=== PATIENT | male | born 1960 | race Caucasian/White ===

== ENCOUNTER 2018-08-31 10:26 | Inpatient (IN) ==
[~2018-08-31 10:26] MED LIST: LIDOCAINE W/ SODIUM BICARB 0.5 ML SYR ONE; LIDOCAINE W/ SODIUM BICARB 0.5 ML SYR SUBD ONE; Lactated Ringers 1,000 ML PRIMARY IV ONE; Nasal Sanitizer POPSWAB ampule 3 AMP (Nozin) PREOP DOSE ENOS SCH; Vancomycin Inj 1gm vial ONE; ceFAZolin Inj 2gm (Premix) 2 GM/50 ML BAG IV ONE
[2018-08-31] MEDS ORDERED: HYDROmorphone 2 MG/1 ML IVP ONE (11:35)
[2018-08-31] MEDS ORDERED: REMIFENTANIL 1 MG/1 ML IV ONE ×2 (11:59→16:28)
[2018-08-31] MEDS ORDERED: REMIFENTANIL HCL 2 MG VIAL IV ONE ×2 (11:59→16:28)
[2018-08-31] MEDS ORDERED: Gentamicin Inj 40 MG/ML VIAL ONE (13:20)
[2018-08-31] MEDS ORDERED: Sodium Chloride 0.9% vial 30 ML ONE (13:20)
[2018-08-31] MEDS ORDERED: BUPIVACAINE 0.25% W/ EPI - 10 ML VIAL ONE (13:20)
[2018-08-31] MEDS ORDERED: Vancomycin Inj 1gm vial ONE (13:20)
[2018-08-31] MEDS ORDERED: BACITRACIN 50,000 UNIT VIAL IRRIG ONE (13:21)
[2018-08-31] MEDS ORDERED: BUPivacaine Liposome/PF (Exparel) Inj 20ml vial INFIL ONE (13:21)
[2018-08-31] MEDS ORDERED: LIDOCAINE HCL 2 % 10 ML JELLY URO-JECT TOPICAL ONE ×2 (13:50→13:59)
[2018-08-31] MEDS ORDERED: KETAMINE HCL 100 MG/2 ML SYRINGE IV ONE (14:17)
[2018-08-31] MEDS ORDERED: BUPivacaine Inj 0.25% PF - 10ml vial ONE (14:38)
[2018-08-31] MEDS ORDERED: Acetaminophen 1000mg Inj 1,000 MG/100 ML VIAL IV ONE (16:19)
[2018-08-31] MEDS ORDERED: MIDAZOLAM 5 MG/1 ML IVP ONE (16:28)
[2018-08-31] MEDS ORDERED: fentaNYL Inj 250 MCG/5 ML VIAL IVP ONE (16:28)
[2018-08-31] MEDS ORDERED: KETOROLAC 30 MG/1 ML VIAL ONE (16:35)
[2018-08-31] MEDS ORDERED: HYDROmorphone 2 MG/1 ML ONE ×4 (16:47→18:09)
[2018-08-31] MEDS ORDERED: LIDOCAINE W/ SODIUM BICARB 0.5 ML SYR SUBD PRN (17:49)
[2018-08-31] MEDS: HYDROmorphone 2 MG/1 ML IVP PRN ×3 (17:52→18:11)
--- NOTE | 2018-08-31 17:55 | CRNA.PROGR ---
Anesthesia Time - Procedure/Recovery Time Start Date: 08/31/18 End Date: 08/31/18 Anesthesia : Time In: 13:48 Anesthesia : Time Out: 17:47 Anesthesia : Total Time: 239 - Total Anesthesia Time Total Anesthesia Time (minutes): 239 - Other Weight: 95.708 kg Height: 5 ft 11 in Body Mass Index (BMI): 29.4 Physical Status: P2 Anesthesia Type: General Anesthesia : ET
--- NOTE | 2018-08-31 17:56 | CRNA.PROGR ---
Anesthesia Recovery Phase I - Post Anesthesia Evaluation Patient's Condition on Arrival in Phase I: Stable Pain Level: 7
[2018-08-31] MEDS ORDERED: Lactated Ringers 1,000 ML PRIMARY IV SCH (18:00)
[2018-08-31] MEDS ORDERED: DIAZEPAM 10 MG/2 ML (5 MG/1 ML) CARPUJECT IVP ONE (18:18)
[2018-08-31] MEDS ORDERED: MAGNESIUM 400 MG/5 ML - 30 ML (MILK OF MAGNESIA) PO PRN (18:57)
[2018-08-31] MEDS ORDERED: Fleet Enema 133ml RECTAL PRN (18:57)
[2018-08-31] MEDS ORDERED: Vancomycin-PHA to Dose IV SCH (18:57)
[2018-08-31] MEDS ORDERED: Metoclopramide Inj 10 MG/2 ML VIAL IVP PRN (18:57)
[2018-08-31] MEDS ORDERED: Ondansetron ODT Tab 4 MG TAB PO PRN (18:57)
[2018-08-31] MEDS ORDERED: MAGNESIUM CITRATE 296 ML SOLUTION PO PRN (18:57)
[2018-08-31] MEDS ORDERED: Prochlorperazine Edisylate Inj 10mg/2ml vial IVP PRN (18:57)
[2018-08-31] MEDS ORDERED: BISACODYL 5 MG TABLET PO PRN (18:57)
[2018-08-31] MEDS ORDERED: ONDANSETRON 4 MG/2 ML VIAL IVP PRN (18:57)
[2018-08-31] MEDS ORDERED: DOCUSATE 100 MG CAPSULE PO PRN (18:57)
[2018-08-31] MEDS ORDERED: PROMETHAZINE 25 MG/1 ML VIAL IM PRN (18:57)
[2018-08-31] MEDS: oxyCODONE/APAP 10/325 Tab 1 EACH TAB PO PRN (22:18)
[2018-08-31] MEDS: ceFAZolin Inj 1 GM in Sodium Chloride 0.9% 100 ML IV SCH (22:19)
[2018-08-31] MEDS: oxyCODONE ER Tab 20 MG TAB PO SCH (22:19)
[2018-08-31] MEDS: MORPHINE SULFATE 4 MG/1 ML IVP PRN (23:00)
[2018-08-31] MEDS: DIAZEPAM 10 MG TABLET PO PRN (23:47)
[2018-09-01] MEDS: MORPHINE SULFATE 4 MG/1 ML IVP PRN ×5 (02:53→20:49)
[2018-09-01] MEDS: oxyCODONE/APAP 10/325 Tab 1 EACH TAB PO PRN ×6 (03:33→23:37)
[2018-09-01 04:55] LABS: BASOPHILS # (AUTO) 0.02 10*3/UL; BASOPHILS % (AUTO) 0.4 % (0-1); EOSINOPHILS # (AUTO) 0.39 10*3/UL; EOSINOPHILS % (AUTO) 7.6 % (0-8); Hematocrit [HCT] 33.3 % (42.0-52.0); LYMPHOCYTES # (AUTO) 1.24 10*3/uL; MEAN CORPUSCULAR HEMOGLOBIN 30.6 PG (27-31); MEAN CORPUSCULAR VOLUME 92.5 FL (80-90); MEAN PLATELET VOLUME 8.9 FL (7.4-12.2); MONOCYTES # (AUTO) 0.38 10*3/UL (0.3-0.8); MONOCYTES % (AUTO) 7.4 % (5-15); NEUTROPHILS # (AUTO) 3.07 10*3/UL; NEUTROPHILS % (AUTO) 60.1 % (50-80)
[2018-09-01 05:16] LABS: PLATELET MORPHOLOGY COMMENT NORMAL MORPHOLOGY (NORM); RBC MORPHOLOGY COMMENT NORMAL MORPHOLOGY (NORM); WBC MORPHOLOGY COMMENT NORMAL MORPHOLOGY (NORM)
[2018-09-01 05:18] LABS: BLOOD UREA NITROGEN 11 mg/dL (7-22); BUN/CREATININE RATIO 12.22 (6-20)
[2018-09-01] MEDS: ceFAZolin Inj 1 GM in Sodium Chloride 0.9% 100 ML IV SCH (05:44)
[2018-09-01] MEDS: DIAZEPAM 10 MG TABLET PO PRN ×3 (05:44→22:28)
[2018-09-01] MEDS: oxyCODONE ER Tab 20 MG TAB PO SCH ×2 (07:07→19:27)
[2018-09-01] MEDS: LISINOPRIL 5 MG TABLET PO SCH (08:37)
[2018-09-01] MEDS: CARVEDILOL 3.125 MG TABLET PO SCH (08:37)
[2018-09-01] MEDS: VARENICLINE TARTRATE 1 MG PO SCH ×2 (09:25→20:51)
--- NOTE | 2018-09-01 12:12 | CRNA.PROGR ---
Anesthesia Note - Progress Notes Anesthesia Progress Note: Post OP Anesthesia Note Pt is lying in bed, visiting with the the Hospitalist, he has been up and moving, walking around the nursing floor. He states that he has been able to tolerate a regular diet, and denies any N/V. Is pain is moderate and being managed by the hospitalist. current VS are stable. Denies any residual problems of GETA. Vital Signs - Last Taken Temperature 98 F 09/01/18 11:12 Pulse Rate 82 09/01/18 11:12 Respiratory Rate 20 09/01/18 11:12 Blood Pressure 122/74 09/01/18 11:12 Pulse Ox 94 09/01/18 11:12
--- NOTE | 2018-09-01 12:35 | NEURO.PROG ---
Subjective Post Op Day: 0 Pain Management: PO Chandler Catheter: Yes Flatus: Yes Diet: Regular Ambulating: No Additional Details: Late Entry Patient seen last night, 08/31/2018 at approximately 6:00 pm in the PACU (could not access [employer] in hotel later when trying to document visit). Waking up from anesthesia. Complaint of back pain. Moving all extremities well. PLAN: 1.) Transfer to surgical floor when ready. 2.) Continue post-operative antibiotics. 3.) Continue post-operative pain control. 4.) Mobilize. Objective : Data - Labs CBC and BMP: 09/01/18 04:32 09/01/18 04:32 - Vital Signs Vital Signs and I&O: Vital Signs - Last Taken Temperature 98 F 09/01/18 11:12 Pulse Rate 82 09/01/18 11:12 Respiratory Rate 20 09/01/18 11:12 Blood Pressure 122/74 09/01/18 11:12 Pulse Ox 94 09/01/18 11:12 Intake and Output (24hr x 4 totals) 08/30/18 08/31/18 09/01/18 09/02/18 05:59 05:59 05:59 05:59 Intake Total 4700 / 4700 940 / 940 Output Total 1700 / 1700 800 / 800 Balance 3000 / 3000 140 / 140
--- NOTE | 2018-09-01 12:38 | NEURO.PROG ---
Subjective Post Op Day: 1 Pain Management: PO Chandler Catheter: No Flatus: Yes Diet: Regular Ambulating: Yes Additional Details: Awake and alert. Complaint of post-operative pain. Chandler out. Eating/ambulating. Moving all extremities well. 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 PLAN: 1.) Continue post-operative pain control, patient not ready for discharge as still requiring IV pain meds for breakthrough pain. 2.) Continue to mobilize. Objective : Data - Labs CBC and BMP: 09/01/18 04:32 09/01/18 04:32 - Vital Signs Vital Signs and I&O: Vital Signs - Last Taken Temperature 98 F 09/01/18 11:12 Pulse Rate 82 09/01/18 11:12 Respiratory Rate 20 09/01/18 11:12 Blood Pressure 122/74 09/01/18 11:12 Pulse Ox 94 09/01/18 11:12 Intake and Output (24hr x 4 totals) 08/30/18 08/31/18 09/01/18 09/02/18 05:59 05:59 05:59 05:59 Intake Total 4700 / 4700 940 / 940 Output Total 1700 / 1700 800 / 800 Balance 3000 / 3000 140 / 140
[2018-09-01] MEDS: NICOTINE 21 MG /DAY PATCH TRANSDERM SCH (13:57)
--- NOTE | 2018-09-01 14:42 | PDOC ---
HPI - History of Present Illness Date of Service: 09/01/18 Time of Service: 10:30 Chief Complaint: Back pain History of Present Illness: This very pleasant 58-year-old male with prior history of back surgeries and chronic low back pain. He felt that the hardware is giving him pain any spoke with Dr. Alvarez regarding hardware removal. He did very well with a couple of hardware blocks. We were consulted to help address medical issues in the setting of his lower back surgery during his hospital stay. He currently denies any chest pain, shortness breath, nausea or vomiting. His major complaint is acute postoperative pain. He states that his pain prior to surgery is much better but this seems like incisional pain. He is quite anxious about his pain symptoms, but he also is a smoker and has not had any nicotine patch. There were no other complaints. Please see Dr. Alvarez's surgical note regarding procedures performed. Past Medical History Medical History: 1. Chronic back pain. 2. Hypertension. 3. Hepatitis C, chronic. 4. Depression Surgical History: 1. Multiple back surgeries in the past. 2. Multiple left hand surgeries due to an accident at age 19. 3. Right wrist and elbow surgery Pertinent Family History: Denied any problems in his family history Past Social History: Pack per day smoker. Denies drinking alcohol. States he no longer uses drugs. . Has healthy children. Lives in [place], [place]. Tobacco Use: Current Every Day Smoker In the Past 12 Months, Have Used or Abuse Any of the Following Substance: None Alcohol Use: None Medication / Allergies Home Medications: Home Medications Medication Instructions Recorded Confirmed Type oxycodone 5 mg capsule 15 mg PO Q4-6H PRN 03/10/18 08/30/18 History oxycodone ER 20 mg tablet,crush 20 mg PO Q12H 03/10/18 08/30/18 History resistant,extended release 12 hr varenicline 1 mg tablet 1 mg PO BID 06/09/18 08/30/18 History Carvedilol 3.125 mg PO DAILY 08/30/18 08/30/18 History Cyclobenzaprine HCl [Flexeril] 10 mg PO PRN PRN 08/30/18 08/30/18 History Lisinopril 2.5 mg PO DAILY 08/30/18 08/30/18 History Allergies/Adverse Reactions: Allergies Allergy/AdvReac Type Severity Reaction Status Date / Time No Known Allergies Allergy Verified 09/01/18 06:36 Review of Systems - Review of Systems All Systems: Reviewed & No Additional Complaints Except as Stated (I did a 12 point review systems and it was negative other than that discussed below and in the history of present illness.) Exam - Vitals Vital Signs: Vital Signs Temperature 98 F Temperature Source Temporal Artery Scan Pulse Rate [Pulse Oximeter] 82 Pulse Rate 73 Respiratory Rate 20 Blood Pressure [Left Arm] 122/74 Blood Pressure 116/72 Pulse Ox 94 Oxygen Flow Rate 2 Oxygen Delivery Method Room Air Height 5 ft 11 in Weight 222 lb 4.8 oz - General General Appearance: No Acute Distress, Cooperative - Head Head Exam: Normal Inspection, Normocephalic, Atraumatic - Eye Eye Exam: POSITIVE: No Scleral Icterus - ENT ENT Exam: POSITIVE: Mucous Membranes Moist Additonal ENT Exam Details: Does not have any teeth - Neck Neck Exam: Normal Inspection, No Tenderness, No Lymphadenopathy, No Thyromegaly, JVP is not Raised - Respiratory Respiratory Exam: POSITIVE: Clear to Auscultation - Bilaterally, Breathing Non Labored - Cardiovascular Cardiovascular Exam: POSITIVE: RRR, No Murmur, No Clicks, No Gallops, No Rubs, No JVD - GI/Abdominal GI/Abdominal Exam: POSITIVE: Normal Bowel Sounds, Non Tender, Non Distended, Soft - Rectal Rectal Exam: POSITIVE: Deferred - External Exam: POSITIVE: Deferred Exam: POSITIVE: Deferred, Chandler Catheter in Place (Urine looks clear) - Extremities Extremities Exam: POSITIVE: No Clubbing Present, No Edema Present, No Cyanosis Present - Back Additional Back Exam Details: There is a drain in place. - Neurological Neurological Exam: POSITIVE: Alert, Oriented x 3, No Facial Droop, Speech Intact / Clear, Moves All Extremities Equally - Psychiatric Psychiatric Exam: POSITIVE: Anxious Results - Labs CBC and BMP: 09/01/18 04:32 09/01/18 04:32 Assessment and Plan - Patient Problems (1) Hypertension Current Visit: Yes Status: Acute Code(s): I10 - Essential (primary) hypertension Qualifiers: Hypertension type: essential hypertension Qualified Code(s): I10 - Essential (primary) hypertension (2) Chronic neck and back pain Current Visit: No Status: Chronic Code(s): M54.2 - Cervicalgia; M54.9 - Dorsalgia, unspecified; G89.29 - Other chronic pain (3) Hepatitis C Current Visit: Yes Status: Acute Code(s): B19.20 - Unspecified viral hepatitis C without hepatic coma Qualifiers: Viral hepatitis chronicity: unspecified Hepatic coma status: without hepatic coma Qualified Code(s): B19.20 - Unspecified viral hepatitis C without hepatic coma (4) Tobacco abuse Current Visit: Yes Status: Acute Code(s): Z72.0 - Tobacco use (5) Depression Current Visit: Yes Status: Chronic Code(s): F32.9 - Major depressive disorder, single episode, unspecified Qualifiers: Depression Type: other depression Qualified Code(s): F32.89 - Other specified depressive episodes - Assessment / Plan Additional Assessment/Plan Details: Patient was admitted post surgery. Continue antihypertensive therapy. Add nicotine patch. PT and OT. Pain control and DVT prophylaxis as per neurosurgery.
--- NOTE | 2018-09-01 16:26 | PT.PROG ---
Progress Note Progress Note: S. patient stated he is feeling alright this afternoon. O. patient ambulated 150 feet around the nurses station, then ascended and descended 4 stairs. Patient returned to his room where he was left with alarm and call light. A. Patient tolerated ambulation and stair training well, he did report slight back pain after walking. P. Patient has met all goals at this time. Continue POC until Discharge.
--- NOTE | 2018-09-01 16:34 | GEN.OPNOTE ---
Operative Note Surgery Date: 08/31/18 Preoperative Diagnosis: 1.) Chronic low back pain. 2.) Reproducable, successful L3-S1 hardware blocks. 3.) Status post L4-S1 hardware removal and L3-4 interbody and L3-S1 posterolateral instrumented fusion. 4.) Status post L4-S1 interbody and posterolateral instrumented fusion. 5.) S/P remote work related injury. Postoperative Diagnosis: 1.) Chronic low back pain. 2.) Reproducable, successful L3-S1 hardware blocks. 3.) Status post L4-S1 hardware removal and L3-4 interbody and L3-S1 posterolateral instrumented fusion. 4.) Status post L4-S1 interbody and posterolateral instrumented fusion. 5.) S/P remote work related injury. Procedure: L3-S1 posterolateral instrumentation removal. (CPT code: 11817) Surgeon: Palomo Alvarez MD Immunopathologist: CHUCK Villalta Anesthesia Provider: Evans Darby CRNA Anesthesia Type: General Estimated Blood Loss (mL): 100 Fluids: See anesthesia record Pathology: None Indications: Mr. Wen is a 58 year old gentleman status post a remote work related injury. He had a previous L4-S1 interbody and posterolateral instrumented fusion. 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 He underwent a hardware removal at L4-S1 hardware removal and interbody L3-4 TLIF/L3-S1 posterolateral instrumented fusion that I performed on 10/31/15. He underwent a right SI joint fusion that I performed on 08/30/17. He has continued to have some back pain. Her underwent two hardware blocks performed by Dr. Rosado, both of which gave him significant relief of his back pain. He wished to proceed with surgery to remove his posterolateral lumbar hardware. Findings: 1.) Solid L3-S1 fusion. 2.) Physiologic motion at the L2-3 level above his lower lumbar fused levels. 3.) Partially solidified/gelled posterolateral bone fusion products. 4.) Loculated fluid pocket posterior to the previous multilevel lumbar laminectomy from his previous lower lumbar fusion. Complications: None Operative Summary: Mr. Wen was met in the pre-operative area. His documented surgical history and physical was reviewed. The procedure to be performed was confirmed with Mr. Wen we were in agreement on the procedure to be performed and this mismatched what was written on the patient's consent form. Any questions that he had were answered before he was taken back to the operating room suite. Mr. Wen was brought back to the operating room suite and put under general anesthesia and intubated by the anesthesia staff. He had a Chandler catheter placed in his bladder for the procedure. He had pneumatic compression hose placed on his lower legs bilaterally. Mr. Wen was carefully rolled over onto the [facility] surgical table with his arms gently positioned upwards with his shoulders abducted less than 90. His arms were well-padded with foam padding on top of the padding the surgical armboards. The region of his chest and axilla was checked to make sure that that there were no pressure points over the region of the brachial plexus. His nipples were checked be below the chest pad with no pressure points. All bony prominences were well padded. His Chandler catheter was checked be free from kinks. His pneumatic compression hose was attached to a pneumatic compression device. The intended skin incision, his surgical scar from his previous surgery was marked with a skin marker with crosshatches. Mr. Wen was prepped and draped in the usual and standard fashion. He was given 2 g of Ancef IV and 1 g of vancomycin IV for perioperative antibiosis. A standard surgical timeout was performed identifying the correct patient, the intended procedure, and the correct equipment being available for the procedure. The intended skin incisions were both injected subcutaneously with quarter percent Marcaine with 1 in 200,000 epinephrine. The skin incision was made with a 10 blade scalpel and all dermal and superficial bleeding points were controlled bipolar cautery. Dissection was taken down through the subcutaneous tissue to the level of the lumbosacral fascia. The soft tissue above the fascia was gently dissected laterally to expose the fascia to assist with the closure of the fascia at the end of the procedure. The most caudal remaining spinous process rostral to his previous surgical decompression was palpated. The lumbar fascia was incised with Bovie cautery and subperiosteal dissection was performed down the spinous process and out over the lamina bilaterally. More caudally the dissection was taken out more laterally as the dissection proceeded ventrally to expose the posterolateral hardware elements from his previous surgery and to avoid entry into the canal at any levels of previous decompression. The hardware was identified and was dissected out with Bovie cautery and a large Leksell Rongeur. There was semi solidified posterolateral bone product both of a gel and thick paste consistency that was removed around the hardware elements. The two crosslinks were removed that connected the rods. The set screws in the tulips of the pedicle screws were then removed. The rods were removed on each side. Each pedicle screw was then gently tugged on using a large Leksell rongeur and no movement was identified between the previous surgical levels. There was a solid fusion across the surgical levels despite some of the bone product not having fully solidified into bone. The fusion across the levels was so convincing was decided that there was no need to re-arthrodes the levels and put in additional bone product as I had discussed pre-operatively with Mr. Wen that I might do if there was any question of non-union of the levels. When gently pulling on the L3 screws bilaterally only mimimal motion was noted at across the L2-3 facets consistent with physiologic motion. The remainer of the semi-solidified posterolateral bone product was removed. The center mound of scar tissue over the canal was then paired done with a large Leksell rongeur and a moderately large, walled off, fluid pocket was encountered with the fluid being removed with suction. The base of the fluid pocket was smooth scar tissue over the canal at the level of the posterolateral bone elements. There was no further fluid encountered. The surgical site was pulse lavaged with a liter of Vashe cleansing solution. The surgical site was then pulse lavaged with 3 liters of vancomycin/bacitracin/gentamycin solution. A Medium Hemovac drain was placed in the surgical site. Floseal hemostatic agent was placed into the screw channels. The closure portion of the procedure was performed. The fascia was closed tightly with #1 Vicryl suture. The incision was again irrigated wtih bacitracin irrigation. The deep subcutaneous tissue was re- approximated with 2-0 Vicryl suture. The dermis and superficial subcutaneous tissue was re-approximated with 3-0 Vicryl suture. The Ioban drape was pulled back from the skin edges and the final layer of closure was with surgical stainless steel alexia. The incision was dressed with a Covaderm dressing. The drain was secured with suture. The drain site was dressed. All surgical drapes were removed from Mr. Wen. He was carefully rolled over onto the PACU stretcher. He was awoken and extubated by the anesthesia staff. He was taken to the recovery room in stable condition. All surgical counts were reported as correct by the scrub and cirulating personnel. A Physician's Immunopathologist, Ms. Drea Mensah assisted with the procedure including the exposure and closure portions of the procedure. She provided irrigation and suctioning throughout the procedure.
[2018-09-02] MEDS: MORPHINE SULFATE 4 MG/1 ML IVP PRN (00:56)
[2018-09-02 03:08] VITALS: RESP 18
[2018-09-02] MEDS: oxyCODONE/APAP 10/325 Tab 1 EACH TAB PO PRN ×2 (04:09→08:38)
[2018-09-02] MEDS: DIAZEPAM 10 MG TABLET PO PRN (04:10)
[2018-09-02 07:03] VITALS: O2SAT 95
[2018-09-02] MEDS: oxyCODONE ER Tab 20 MG TAB PO SCH (07:08)
--- NOTE | 2018-09-02 07:32 | NEURO.PROG ---
Subjective Post Op Day: 2 Pain Management: PO Chandler Catheter: No Diet: Regular Ambulating: Yes Additional Details: Mr Wen is awake and alert. He complains of incision pain, but denies numbness or paresthesias. His bilateral dorsi flexion and extension are strong. His incision is dry and intact. He drain had 15o ml in 12 hours. He has ambulated with physical therapy and passed all milestones. He feels ready to discharge home. Plan is to leave the drain until he is ready to leave then discontinue the drain . He was given post operative instructions regarding his incision and activity and a post op appointment with Dr. Alvarez. From a neuro standpoint he is ready for discharge. Objective : Data - Labs CBC and BMP: 09/01/18 04:32 09/01/18 04:32 - Vital Signs Vital Signs and I&O: Vital Signs - Last Taken Temperature 97.7 F 09/02/18 07:03 Pulse Rate 73 09/02/18 07:03 Respiratory Rate 18 09/02/18 07:03 Blood Pressure 111/69 09/02/18 07:03 Pulse Ox 95 09/02/18 07:03 Intake and Output (24hr x 4 totals) 08/31/18 09/01/18 09/02/18 09/03/18 05:59 05:59 05:59 05:59 Intake Total 4700 / 4700 3675 / 3675 Output Total 1700 / 1700 2760 / 2760 300 / 300 Balance 3000 / 3000 915 / 915 -300 / -300
[2018-09-02] MEDS: LISINOPRIL 5 MG TABLET PO SCH (08:38)
[2018-09-02] MEDS: CARVEDILOL 3.125 MG TABLET PO SCH (08:38)
[2018-09-02] MEDS ORDERED: Patch Removal PATCH TRANSDERM SCH (09:00)
[2018-09-02] MEDS: NICOTINE 21 MG /DAY PATCH TRANSDERM SCH (09:08)
[2018-09-02] MEDS: VARENICLINE TARTRATE 1 MG PO SCH (09:09)
--- NOTE | 2018-09-02 09:54 | PT.PROG ---
Progress Note Progress Note: S Pt. states she is doing well. He is ready to go home. O: Treatment consisted functional activities: ambulating around facility with back brace donned, gait belt and SBA x 1 for safety. he then ambulated down to the therapy clinic where he performed sit to stands x 10, bilateral LE 10x each: laq, seated marches, ankle pumps and then ambulated back up to his room. Pt.was left standing in his room. A: Pt. has been up walking around in his room without assist. No LOB noted or balance deficits noted. He did attempt to bend down to use the water fountain with difficulty with bending. Did educate patient not to be bending and that he could use his cup to prevent the bending. He is ready to go home and should do fine at home with out patient therapy. P: Continue per POC unless otherwise d/c from facility. Fatuma Horton, WINDING OPERATOR
--- NOTE | 2018-09-02 09:55 | OT.PROG ---
Progress Note Progress Note: S: pt stated that he was feeling good and ready to go home. O: tx consisted of education of pt wearing back brace while moving around. pt completed UE dressing independently while standing,donned back brace independently, completed ADL tasks of hand washing oral hygiene and brushing hair while standing at the sink independently. A: pt is non compliant with use of back brace and safe precautions. P: continue POC
--- NOTE | 2018-09-02 11:34 | DCSUMMARY ---
Hospitalization Summary Hospital Course: Final Discharge Diagnosis: Current Visit Problems Problem Status Onset Code Hypertension Acute I10 Hepatitis C Acute B19.20 Tobacco abuse Acute Z72.0 Depression Chronic F32.9 Diagnostic Data, Laboratory Data, and Procedures of Signifigance: CBC and BMP 09/01/18 04:32 09/01/18 04:32 History and Physical pertinent to Admission: This very pleasant 58-year-old male with prior history of back surgeries and chronic low back pain. He felt that the hardware is giving him pain any spoke with Dr. Alvarez regarding hardware removal. He did very well with a couple of hardware blocks. We were consulted to help address medical issues in the setting of his lower back surgery during his hospital stay. He currently denies any chest pain, shortness breath, nausea or vomiting. His major complaint is acute postoperative pain. He states that his pain prior to surgery is much better but this seems like incisional pain. He is quite anxious about his pain symptoms, but he also is a smoker and has not had any nicotine patch. There were no other complaints. Please see Dr. Alvarez's surgical note regarding procedures performed. Course of Hospitalization: Is a very nice 58-year-old the gentleman with history of chronic low back pain and previous surgeries. He was admitted by Dr. Alvarez for hardware removal. He did well postop hospitalist service was consult did for addressing other medical issues during his hospital stay. I discussed the case with Doretha Mensah she has instructed me that I can discharge the patient home any time I wanted this since from their standpoint he could go home. I saw the patient is been accommodating the hallways has no complaints will continue his home meds and will be discharged home. On the date of discharge, the patient was examined: Gen.: No acute distress, alert, nontoxic Heart: Regular rate and rhythm, no murmurs, clicks, gallops, or rubs Lungs: Clear to auscultation bilaterally, breathing is nonlabored Abdomen/GI: Normal tones on auscultation, soft, nontender, nondistended Musculoskeletal/extremities: No clubbing, cyanosis, or edema Vitals reviewed and are listed below Vital Signs (24 hrs) 09/01/18 16:34 09/01/18 19:00 09/01/18 20:31 Temperature 98.5 F 98.5 F Pulse Rate Pulse Oximeter 100 100 102 H Respiratory Rate 20 20 Blood Pressure Left Arm 146/90 123/72 Pulse Ox 95 92 09/02/18 00:10 09/02/18 03:08 09/02/18 07:00 Temperature 97.4 F 98.5 F Pulse Rate Pulse Oximeter 80 77 73 Respiratory Rate 20 18 Blood Pressure Left Arm 126/70 141/86 Pulse Ox 92 94 09/02/18 07:03 Temperature 97.7 F Pulse Rate Pulse Oximeter 73 Respiratory Rate 18 Blood Pressure Left Arm 111/69 Pulse Ox 95 Assessment and Plan: 1. As per discharge assessments above 2. Disposition: Home 3. Condition on discharge, stable and improved. 4. Diet: regular diet 5. Activities: resume normal activities 6. Follow-Up: 1. PCP 2. This has been arranged by Doretha Mensah for is surgery rehabilitation and postop plans 7. Medications at the Time of Discharge: Home Medications Medication Instructions Recorded Confirmed Type oxycodone 5 mg capsule 15 mg PO Q4-6H PRN 03/10/18 08/30/18 History oxycodone ER 20 mg tablet,crush 20 mg PO Q12H 03/10/18 08/30/18 History resistant,extended release 12 hr varenicline 1 mg tablet 1 mg PO BID 06/09/18 08/30/18 History Carvedilol 3.125 mg PO DAILY 08/30/18 08/30/18 History Cyclobenzaprine HCl Flexeril 10 mg PO PRN PRN 08/30/18 08/30/18 History Lisinopril 2.5 mg PO DAILY 08/30/18 08/30/18 History oxyCODONE ER Tab OxyCONTIN Tab 20 mg PO Q12H #40 tab 09/02/18 Rx oxyCODONE/APAP 10/325 Tab 1 - 2 ea PO Q4H PRN #90 tab 09/02/18 Rx Percocet 10/325 Tab 8. Time, care, counseling and coordination of care for this discharge is greater than 30 minutes. Exam - Vitals Vital Signs: Vital Signs Temperature 97.7 F Temperature Source Temporal Artery Scan Pulse Rate [Pulse Oximeter] 73 Pulse Rate 73 Respiratory Rate 18 Blood Pressure [Left Arm] 111/69 Blood Pressure 116/72 Pulse Ox 95 Oxygen Flow Rate 2 Oxygen Delivery Method Room Air Height 5 ft 11 in Weight 220 lb 12.8 oz
--- NOTE | 2018-09-02 11:38 | PTI REPORT ---
Thank you for the referral of Nikko Wen. He was seen on 09/01/18 for an inpatient evaluation status post lumbar spine laminectomy. SUBJECTIVE: The patient is a 58-year-old male. The patient reports he is in way too much pain to do anything. He states he has had multiple surgeries in the past and knows his body and he is not willing to do anything; however, as the patient visited with the therapist, he was willing to participate. The patient states he lives in [place] with his and doesn't feel comfortable going home today and is unsure about being able to go tomorrow. PAST MEDICAL HISTORY: Past medical history can be found in the patient's medical record. OBJECTIVE FINDINGS: General observations: The patient was hesitant about receiving the [employer] back brace initially and originally was complaining of hypersensitivity to activities; however, with distractive verbal techniques, the patient demonstrated the ability to don and doff as well as adjust the brace on his own independently without difficulty. Pain: The patient originally reported a pain level of 8/10 on the verbal analog scale (0=no pain, 10=worst pain); however, he was expressing what the therapist views as inappropriate illness behavior, so no direct mention of the patient's pain was mentioned throughout the remainder of the treatment. Bed mobility: The patient was able to perform all bed mobility independently. Transfers: The patient was able to perform sit to stand transfers with stand by assistance. He was able to stand for greater than 10 minutes while his IV was being disconnected which resulted in some problems and the patient being required to stand longer. Ambulation: The patient was able to ambulate over 300 feet continuously with standard walker, gait belt, and contact guard to stand by assistance as long as the patient received verbal distraction. Strength/Range of motion: Strength and range of motion were not formally tested ASSESSMENT: Problem List: Patient is status post laminectomy Decreased pain tolerance Decreased willingness to participate with physical activities Physical Therapy Goals: To be met by discharge from inpatient: Patient will be able to ambulate up to 300 feet for community ambulation with appropriate assistive device. Patient will be able to don and doff his back brace and adjust it independently. Patient will be able to perform all bed mobility and transfers independently. Patient will be able to ascend and descend stairs for safety for return to home. TREATMENT PLAN: Patient will be seen B.I.D during the week and one time per day over the weekend as an inpatient to address the above goals and objectives. INITIAL TREATMENT: Treatment today consisted of the initial evaluation. The patient was issued a [employer] back brace and was instructed on donning and doffing and he was able to perform return demonstration. He was able to perform consistent standing activities for greater than 10 minutes as well as ambulating well over 300 feet continuously with standard walker, gait belt, and contact guard to stand by assist with use of a gait belt. The patient also performed 5 minutes of ADLs at the sink. The patient was instructed in therapeutic exercises to be doing in bed including quad sets, glut sets, and ankle pumps. During treatment, the patient did require constant verbal distraction techniques from his pain. At this time there is no reason why the patient should not be able to be discharged home tomorrow. CONTRERAS
[2018-09-02 11:46] VITALS: BP 126/83; TEMP 97
--- NOTE | 2018-09-02 14:14 | OTI REPORT ---
Thank you for the referral of Nikko Wen. He was seen on 09/01/18 for an occupational therapy inpatient evaluation status post lumbar laminectomy. SUBJECTIVE: The patient is a 58-year-old male who is being seen secondary to having a laminectomy. The patient lives with his and son. He says that his will be able to help but his son will not help. This is the patient's fourth back surgery and he is hoping that this one helps. He was very interested in the equipment as prior to admission he was having difficulty with some of his ADLs including dressing self. PAST MEDICAL HISTORY: Past medical history can be found in the patient's medical record. OBJECTIVE FINDINGS: General observations: The patient was educated in some back precautions. With the laminectomy, he doesn't have near the precautions as the fusion, but he was told to go within his tolerance. He states that it does hurt to bend over completely. Activities of daily living: We did issue the patient equipment for lower extremity dressing including a monument setter for doffing socks and lower extremity dressing, a sock aide, a bath sponge, and a long handled shoe horn. The patient reports that his toilet is higher at home but he would benefit from a shower chair as he states he does fatigue quite easily with bathing tasks. Currently we are out of shower chairs; we will try to get him one before he discharges tomorrow. ASSESSMENT: Problem List: Decreased ability to complete functional transfers Decreased ability to complete ADLs Short-Term Goals: To be met by discharge from inpatient: Patient will be able to dress self with modified independence with use of adaptive devices. Patient will be able to complete all functional transfers safely and independently. Patient will demonstrate back precautions and follow them during all ADLs. Patient will be able to complete toilet and bed transfers with increased time independently. Long-Term Goals: To be met following discharge from inpatient: Patient will be discharged home with some care and help from his family with modified independence with all ADLs and functional transfers. TREATMENT PLAN: Patient will be seen B.I.D during the week and one time per day over the weekend as an inpatient to address the above goals and objectives. INITIAL TREATMENT: Treatment today consisted of the initial evaluation followed by the patient completing lower extremity dressing with adaptive devices and min assist. He performed a functional transfer with contact guard assist. CONTRERAS
--- NOTE | 2018-09-05 10:28 | OT PM DAY ---
Diagnosis : Laminectomy PM - Occupational Therapy O: The patient was issued a high rise toilet seat and instructed in its proper use and care. P: No further therapy is indicated at this time. MTDD
== END 2018-09-02 11:52 | disposition home or self-care (01) | DRG 517 ==
LOC: OR 10:26 → MED/SURG 17:37
PROVIDERS: ADMIT Neurological Surgery; ATTEND Neurological Surgery